=== PATIENT | female | born 1945 | race American Indian/Alaskan Native ===

== ENCOUNTER 2017-07-23 12:40 | Inpatient (IN) | payer BC, MEDICARE ==
[2017-07-23] MEDS ORDERED: MORPHINE IV PRN (13:29)
[2017-07-23] MEDS ORDERED: REGLAN IV PRN (13:30)
[2017-07-23] MEDS ORDERED: SODIUM CHLORIDE FLUSH SYRINGE 10 ML IV PRN ×2 (14:33→15:42)
[2017-07-23] MEDS ORDERED: TYLENOL PO PRN ×2 (14:33→15:42)
[2017-07-23] MEDS ORDERED: ZOFRAN IV PRN ×2 (14:33→15:42)
[2017-07-23] MEDS ORDERED: PROVENTIL IH PRN (14:33)
--- NOTE | 2017-07-23 14:33 | History and Physical Report ---
History of Present Illness Date of admission: 07/23/17 13:15 Medications and Allergies Allergies Allergy/AdvReac Type Severity Reaction Status Date / Time ondansetron Allergy Dizziness Verified 07/23/17 12:58 [From Zofran (as hydrochloride)] levofloxacin [From Levaquin] AdvReac Intermediate Hives Verified 07/23/17 13:36 Sulfa (Sulfonamide AdvReac Intermediate Hives Verified 07/23/17 13:36 Antibiotics) codeine AdvReac Hives Verified 07/23/17 13:36 Active Meds: Active Medications Metoclopramide HCl (Reglan) 10 mg IV Q8H PRN PRN Reason: Nausea And Vomiting Morphine Sulfate (Morphine) 2 mg IV Q4H PRN PRN Reason: Pain, Moderate (4-6) Exam - Constitutional Vitals: Temp Pulse Resp BP Pulse Ox 97.9 F 85 20 149/69 94 07/23/17 13:40 07/23/17 13:40 07/23/17 13:40 07/23/17 13:40 07/23/17 13:40
--- NOTE | 2017-07-23 14:55 | XRay Report ---
PORTABLE CHEST INDICATION: Dyspnea. COMPARISON: None similar at this institution. FINDINGS: Portable, frontal chest radiograph demonstrates normal cardiomediastinal silhouette, mild aortic knob calcifications and slightly prominent lung markings centrally. Minimal fluid or thickening along the right minor fissure. Slightly hyperexpanded lungs without pleural effusions or overt CHF. Slight biapical scarring/pleural thickening. EKG leads. Demineralized bones. CONCLUSION: Slight pulmonary vascular redistribution without overt CHF, as described. Please also correlate clinically and with prior chest imaging, if available. Thank you for the opportunity to participate in this patient's care.
--- NOTE | 2017-07-23 15:36 | History and Physical Report ---
History of Present Illness Date of examination: 07/23/17 Date of admission: 07/23/17 13:15 Chief complaint: Chief complaint: #1 Multiple episodes of loose bowel movements for the last 5 days. #2 patient was very weak and lightheaded as if about to pass out History of present illness: History of present illness: 71-year-old -[place] female with history of hypertension congestive heart failure gastroesophageal reflux disease chronic pain and IBS comes in for watery stools for the last 5 days. No vomiting. No fever no chills. Patient feels very weak and lightheaded and as if about to pass out. No recent travel. Some crampy abdominal pain present. Past History Past Medical History: heart failure, hypertension, hyperlipidemia Social history: no significant social history, lives with family, full code. denies: smoking, alcohol abuse, prescription drug abuse Family history: hypertension Medications and Allergies Allergies Allergy/AdvReac Type Severity Reaction Status Date / Time ondansetron Allergy Dizziness Verified 07/23/17 12:58 [From Zofran (as hydrochloride)] levofloxacin [From Levaquin] AdvReac Intermediate Hives Verified 07/23/17 13:36 Sulfa (Sulfonamide AdvReac Intermediate Hives Verified 07/23/17 13:36 Antibiotics) codeine AdvReac Hives Verified 07/23/17 13:36 Home Medications Medication Instructions Recorded Confirmed Last Taken Type Cyanocobalamin (Vitamin B-12) 1,000 mg PO DAILY 07/23/17 07/23/17 07/21/17 09: 00 History Glimepiride 1 mg PO DAILY 07/23/17 07/23/17 07/22/17 09:00 History Nitrofurantoin 50 mg PO HS 07/23/17 07/23/17 07/22/17 21:00 History Omeprazole 20 mg PO DAILY 07/23/17 07/23/17 07/23/17 09:00 History Vitamin D (Nf) 2,000 mg PO DAILY 07/23/17 07/23/17 07/21/17 09:00 History Vitamin E Cap 1,000 mg PO DAILY 07/23/17 07/23/17 07/21/17 09:00 History amLODIPine 10 mg PO DAILY 07/23/17 07/23/17 07/22/17 09:00 History Active Meds: Active Medications Acetaminophen (Tylenol) 650 mg PO Q4H PRN PRN Reason: Pain MILD(1-3)/Fever >100.5/TREADWELL Albuterol (Proventil) 2.5 mg IH Q4HRT PRN PRN Reason: Shortness Of Breath Sodium Chloride (Nacl 0.45% 1000 Ml) 1,000 mls @ 100 mls/hr IV DIRECT YOLA Metoclopramide HCl (Reglan) 10 mg IV Q8H PRN PRN Reason: Nausea And Vomiting Morphine Sulfate (Morphine) 2 mg IV Q4H PRN PRN Reason: Pain, Moderate (4-6) Ondansetron HCl (Zofran) 4 mg IV Q8H PRN PRN Reason: Nausea And Vomiting Sodium Chloride (Sodium Chloride Flush Syringe 10 Ml) 10 ml IV BID YOLA Sodium Chloride (Sodium Chloride Flush Syringe 10 Ml) 10 ml IV PRN PRN PRN Reason: LINE FLUSH Review of Systems All systems: negative Constitutional: no weight loss, no weight gain ( a review.A result.) Ears, nose, mouth and throat: no hoarseness, no sore throat, no swelling in throat Cardiovascular: no chest pain, no orthopnea, no palpitations, no rapid/ irregular heart beat, no edema, no syncope, no lightheadedness, no shortness of breath Respiratory: no cough, no cough with sputum, no excessive sputum, no hemoptysis , no shortness of breath, no dyspnea on exertion Gastrointestinal: diarrhea, change in bowel habits, no hematemesis, no coffee ground emesis, no BRBPR, no melena, no hematochezia, no loss of appetite Genitourinary Female: no urinary frequency, no urgency, no stress incontinence Rectal: no pain Musculoskeletal: no neck stiffness, no neck pain, no shooting arm pain, no arm numbness/tingling, no low back pain, no shooting leg pain, no leg numbness/ tingling, no redness of joints Integumentary: deferred, no rash, no pruritis, no redness, no sores, no wounds, no jaundice, no boils, no blisters Neurological: no transient paralysis, no paralysis, no weakness, no lack of coordination Psychiatric: no anxiety, no memory loss, no sleep disturbances, no insomnia, no hypersomnia, no change in appetite, no change in libido, no suicidal ideation Endocrine: no cold intolerance, no heat intolerance, no polyphagia, no excessive thirst, no polydipsia, no polyuria Hematologic/Lymphatic: no easy bruising, no easy bleeding Allergic/Immunologic: no urticaria, no allergic rhinitis, no wheezing Exam - Physical Exam Narrative exam: Patient sitting in chair in mild distress - Constitutional Vitals: Temp Pulse Resp BP Pulse Ox 97.9 F 85 20 149/69 94 07/23/17 13:40 07/23/17 14:00 07/23/17 14:00 07/23/17 13:40 07/23/17 14:00 General appearance: Present: mild distress, well-nourished - EENT Eyes: Present: PERRL ENT: hearing intact, clear oral mucosa - Neck Neck: Present: supple, normal ROM - Respiratory Respiratory effort: normal Respiratory: bilateral: CTA - Cardiovascular Heart rate: 70 Rhythm: regular Heart Sounds: Present: S1 & S2. Absent: rub, click - Extremities Extremities: pulses symmetrical, No edema Peripheral Pulses: within normal limits - Abdominal General gastrointestinal: Present: soft, non-tender, non-distended, normal bowel sounds Female genitourinary: Present: normal - Rectal Rectal Exam: deferred - Integumentary Integumentary: Present: clear, warm, dry - Musculoskeletal Musculoskeletal: gait normal, strength equal bilaterally - Psychiatric Psychiatric: appropriate mood/affect, intact judgment & insight - Neurologic Neurologic: CNII-XII intact, moves all extremities - Allied Health Allied health notes reviewed: nursing, case management Results - Labs CBC & Chem 7: 07/23/17 15:13 07/23/17 15:18 Labs: Laboratory Last Values POC Glucose 102 (70-105) 07/23/17 14:16 Assessment and Plan Advance Directives: Yes (full code) VTE prophylaxis?: Chemical Plan of care discussed with patient/family: Yes - Patient Problems (1) Acute gastroenteritis Current Visit: Yes Status: Acute Plan to address problem: Treat symptomatically and IV fluids GI evaluation (2) Dehydration Current Visit: Yes Status: Acute Plan to address problem: IV fluids for now (3) Hypertension Current Visit: Yes Status: Chronic Qualifiers: Hypertension type: essential hypertension Qualified Code(s): I10 - Essential (primary) hypertension Plan to address problem: Cont antihypertensives (4) T2DM (type 2 diabetes mellitus) Current Visit: Yes Status: Chronic Qualifiers: Diabetes mellitus usp insulin use: without rat exterminator use Plan to address problem: Accu-Cheks and coverage (5) Gastroesophageal reflux disease Current Visit: Yes Status: Chronic Qualifiers: Esophagitis presence: without esophagitis Qualified Code(s): K21.9 - Gastro -esophageal reflux disease without esophagitis Plan to address problem: Patient initiated on Protonix, patient is on omeprazole at home (6) Chronic pain Current Visit: Yes Status: Chronic Qualifiers: Chronic pain type: chronic pain syndrome Qualified Code(s): G89.4 - Chronic pain syndrome Plan to address problem: Continue Percocet (7) DVT prophylaxis Current Visit: Yes Status: Acute Plan to address problem: On heparin
[2017-07-23] MEDS ORDERED: PERCOCET 5/325 PO PRN (15:42)
[2017-07-23] MEDS: NACL 0.45% 1000 ML 1,000 ML IV SCH (16:11)
[2017-07-23] MEDS: FLAGYL 500 MG/100 ML 500 MG/100 ML BAG IV SCH ×2 (16:17→22:42)
[2017-07-23] MEDS: PROTONIX PO SCH (16:20)
[2017-07-23] MEDS: NORVASC PO SCH (16:20)
[2017-07-23 16:59] LABS: Basophils % (Auto) 0.3 % (0.0-1.8); Eosinophils # (Auto) 0.1 K/mm3 (0.0-0.4); Eosinophils % (Auto) 1.2 % (0.0-4.3); Hematocrit 38.4 % (30.3-42.9); Hemoglobin 12.3 gm/dl (10.1-14.3); Lymphocytes # (Auto) 2.9 K/mm3 (1.2-5.4); Lymphocytes % (Auto) 46.1 % (13.4-35.0); Mean Corpuscular HGB Conc 32 % (30-34); Mean Corpuscular Hemoglobin 26 pg (28-32); Mean Corpuscular Volume 82 fl (79-97); Monocytes # (Auto) 0.5 K/mm3 (0.0-0.8); Monocytes % (Auto) 8.2 % (0.0-7.3); Platelet Count 227 K/mm3 (140-440); Red Blood Count 4.68 M/mm3 (3.65-5.03); Red Cell Distribution Width 14.8 % (13.2-15.2)
[2017-07-23 17:13] LABS: Alanine Aminotransferase 12 units/L (7-56); Albumin 4.1 g/dL (3.9-5); BUN/Creatinine Ratio 14; Blood Urea Nitrogen 10 mg/dL (7-17); Calcium 9.1 mg/dL (8.4-10.2); Hemolysis Index 30
[2017-07-23 17:17] LABS: INR 0.9 (0.87-1.13)
[2017-07-23] MEDS ORDERED: SODIUM CHLORIDE FLUSH SYRINGE 10 ML IV SCH (22:00)
[2017-07-23] MEDS: DITROPAN PO SCH (22:42)
[2017-07-23] MEDS: AMBIEN PO PRN (22:43)
[2017-07-23] MEDS: SODIUM CHLORIDE FLUSH SYRINGE 10 ML IV SCH (22:44)
[2017-07-24] MEDS: NACL 0.45% 1000 ML 1,000 ML IV SCH ×2 (06:57→21:25)
[2017-07-24] MEDS: FLAGYL 500 MG/100 ML 500 MG/100 ML BAG IV SCH ×3 (06:57→21:25)
--- NOTE | 2017-07-24 08:36 | Consultation ---
REFERRING PHYSICIAN: Jasbir Villalobos MD INDICATION: 1. Change in bowel habits. 2. Loose stool. HISTORY OF PRESENT ILLNESS: The patient is a 71-year-old black female with history of CHF, reflux and IBS as well as chronic pain. The patient reports 5 days of loose, non-bloody bowel movements. She reports no diet or medication changes. She reports no fevers or chills. She reports no change in medications or anything else. The patient reports symptoms started progressively and are worse when she eats. She reports some mild cramping abdominal pain. She denies any weight loss. She reports her last colonoscopy was benign in the end of 2017. She denies any other specific problems or complaints. PAST MEDICAL HISTORY: 1. Hypertension. 2. High cholesterol. 3. Heart failure. MEDICATIONS: See chart. ALLERGIES: ZOFRAN, LEVAQUIN, SULFA DRUGS AND CODEINE. ; SOCIAL HISTORY: Denies alcohol or tobacco. FAMILY HISTORY: Negative for colon cancer. REVIEW OF SYSTEMS: GENERAL: Reports mild weakness. HEENT: No visual complaints or tinnitus. PULMONARY: Reports mild shortness of breath. No cough. No chest pain. GASTROINTESTINAL: Reports loose stool. All points of 13-point review of systems otherwise negative. PHYSICAL EXAMINATION: VITAL SIGNS: Temperature of 97.9, pulse 85, respirations 20, blood pressure 149/69. GENERAL: Fairly nourished black female in no acute distress. HEENT: Pupils are equal, round and reactive. PULMONARY: Clear to auscultation bilaterally. CARDIOVASCULAR: Regular rhythm. Normal S1, S2. ABDOMEN: Positive bowel sounds, soft. SKIN: No obvious rashes. LABORATORY DATA: Pertinent for white count of 6.3, hemoglobin and hematocrit of 12.3 and 38.4, platelet count of 227. Coags within normal limits. Chem-7 within normal limits. LFTs within normal limits. ASSESSMENT: A 71-year-old black female, who presents with 5 days of loose, nonbloody bowel movements with about 3-4 per day. The patient's symptoms suggest more gastroenteritis. Conservative medical approach is noted below. PLAN: 1. Hydrate as per primary team. 2. Clear liquid diet, advance as tolerated. 3. Continue Flagyl as started by primary team. 4. Antiemetics and pain medications p.r.n. 5. Stool cultures based on progress. 6. No plans for colonoscopy or other endoscopic evaluation at this time. 7. If the patient tolerating soft food and stable, okay to discharge in a.m. from GI standpoint. 8. We will follow. JOB# [id number] MATT/SHON
--- NOTE | 2017-07-24 08:51 | Progress Note ---
<JORI THACKER - Last Filed: 07/24/17 16:47> Assessment and Plan Assessment and plan: 71-year-old -S[place]i female was admitted for loose stools 5 days. (1) Acute gastroenteritis Treat symptomatically and IV fluids C diff ordered, continue Flagyl, GI evaluation (2) Dehydration IV fluids for now (3) Hypertension Cont antihypertensives (4) T2DM (type 2 diabetes mellitus) Accu-Cheks and coverage (5) Gastroesophageal reflux disease Patient initiated on Protonix, patient is on omeprazole at home (6) Chronic pain Continue Percocet (7) DVT prophylaxis On heparin History Interval history: Patient seen and examined. She states that her stools have been formed today but still frequent, 3 this morning. Labs and nursing notes reviewed. Hospitalist Physical - Constitutional Vitals: Temp Pulse Resp BP Pulse Ox 97.8 F 73 20 137/43 91 07/24/17 07:20 07/24/17 07:20 07/24/17 07:20 07/24/17 07:20 07/24/17 07:20 General appearance: Present: no acute distress, well-nourished - EENT Eyes: Present: PERRL, EOM intact ENT: hearing intact, clear oral mucosa - Neck Neck: Present: supple, normal ROM - Respiratory Respiratory effort: normal Respiratory: bilateral: CTA - Cardiovascular Rhythm: regular Heart Sounds: Present: S1 & S2 - Extremities Extremities: no ischemia, No edema, normal temperature, normal color - Abdominal General gastrointestinal: soft, non-tender, non-distended - Integumentary Integumentary: Present: clear, warm, dry - Psychiatric Psychiatric: appropriate mood/affect, intact judgment & insight, cooperative - Neurologic Neurologic: CNII-XII intact, moves all extremities Results - Labs CBC & Chem 7: 07/23/17 15:13 07/23/17 15:18 Labs: Laboratory Last Values WBC 6.3 K/mm3 (4.5-11.0) 07/23/17 15:13 RBC 4.68 M/mm3 (3.65-5.03) 07/23/17 15:13 Hgb 12.3 gm/dl (10.1-14.3) 07/23/17 15:13 Hct 38.4 % (30.3-42.9) 07/23/17 15:13 MCV 82 fl (79-97) 07/23/17 15:13 MCH 26 pg (28-32) L 07/23/17 15:13 MCHC 32 % (30-34) 07/23/17 15:13 RDW 14.8 % (13.2-15.2) 07/23/17 15:13 Plt Count 227 K/mm3 (140-440) 07/23/17 15:13 Lymph % (Auto) 46.1 % (13.4-35.0) H 07/23/17 15:13 Green % (Auto) 8.2 % (0.0-7.3) H 07/23/17 15:13 Eos % (Auto) 1.2 % (0.0-4.3) 07/23/17 15:13 Baso % (Auto) 0.3 % (0.0-1.8) 07/23/17 15:13 Lymph # 2.9 K/mm3 (1.2-5.4) 07/23/17 15:13 Green # 0.5 K/mm3 (0.0-0.8) 07/23/17 15:13 Eos # 0.1 K/mm3 (0.0-0.4) 07/23/17 15:13 Baso # 0.0 K/mm3 (0.0-0.1) 07/23/17 15:13 Seg Neutrophils % 44.2 % (40.0-70.0) 07/23/17 15:13 Seg Neutrophils # 2.8 K/mm3 (1.8-7.7) 07/23/17 15:13 PT 12.6 Sec. (12.2-14.9) 07/23/17 15:18 INR 0.90 (0.87-1.13) 07/23/17 15:18 Sodium 140 mmol/L (137-145) 07/23/17 15:18 Potassium 3.7 mmol/L (3.6-5.0) 07/23/17 15:18 Chloride 99.7 mmol/L (98-107) 07/23/17 15:18 Carbon Dioxide 21 mmol/L (22-30) L 07/23/17 15:18 Anion Gap 23 mmol/L 07/23/17 15:18 BUN 10 mg/dL (7-17) 07/23/17 15:18 Creatinine 0.7 mg/dL (0.7-1.2) 07/23/17 15:18 Estimated GFR > 60 ml/min 07/23/17 15:18 BUN/Creatinine Ratio 14 % 07/23/17 15:18 Glucose 84 mg/dL (65-100) 07/23/17 15:18 POC Glucose 102 (70-105) 07/23/17 14:16 Hemoglobin A1c 6.2 % (4-6) H 07/23/17 15:51 Calcium 9.1 mg/dL (8.4-10.2) 07/23/17 15:18 Total Bilirubin 0.20 mg/dL (0.1-1.2) 07/23/17 15:18 AST 18 units/L (5-40) 07/23/17 15:18 ALT 12 units/L (7-56) 07/23/17 15:18 Alkaline Phosphatase 68 units/L (35-129) 07/23/17 15:18 Total Protein 7.2 g/dL (6.3-8.2) 07/23/17 15:18 Albumin 4.1 g/dL (3.9-5) 07/23/17 15:18 Albumin/Globulin Ratio 1.3 % 07/23/17 15:18 <DANIELLE LA - Last Filed: 07/24/17 21:25> Assessment and Plan Assessment and plan: I saw and evaluated the patient. I agree with the findings and the plan of care as documented in the Physician Director Of Philanthropy's~note, with the following corrections and additions. Hospitalist Physical - Constitutional Vitals: Temp Pulse Resp BP Pulse Ox 98.3 F 74 18 147/69 95 07/24/17 20:27 07/24/17 20:27 07/24/17 20:27 07/24/17 20:27 07/24/17 20:27 Results - Labs CBC & Chem 7: 07/23/17 15:13 07/23/17 15:18 Labs: Laboratory Last Values WBC 6.3 K/mm3 (4.5-11.0) 07/23/17 15:13 RBC 4.68 M/mm3 (3.65-5.03) 07/23/17 15:13 Hgb 12.3 gm/dl (10.1-14.3) 07/23/17 15:13 Hct 38.4 % (30.3-42.9) 07/23/17 15:13 MCV 82 fl (79-97) 07/23/17 15:13 MCH 26 pg (28-32) L 07/23/17 15:13 MCHC 32 % (30-34) 07/23/17 15:13 RDW 14.8 % (13.2-15.2) 07/23/17 15:13 Plt Count 227 K/mm3 (140-440) 07/23/17 15:13 Lymph % (Auto) 46.1 % (13.4-35.0) H 07/23/17 15:13 Green % (Auto) 8.2 % (0.0-7.3) H 07/23/17 15:13 Eos % (Auto) 1.2 % (0.0-4.3) 07/23/17 15:13 Baso % (Auto) 0.3 % (0.0-1.8) 07/23/17 15:13 Lymph # 2.9 K/mm3 (1.2-5.4) 07/23/17 15:13 Green # 0.5 K/mm3 (0.0-0.8) 07/23/17 15:13 Eos # 0.1 K/mm3 (0.0-0.4) 07/23/17 15:13 Baso # 0.0 K/mm3 (0.0-0.1) 07/23/17 15:13 Seg Neutrophils % 44.2 % (40.0-70.0) 07/23/17 15:13 Seg Neutrophils # 2.8 K/mm3 (1.8-7.7) 07/23/17 15:13 PT 12.6 Sec. (12.2-14.9) 07/23/17 15:18 INR 0.90 (0.87-1.13) 07/23/17 15:18 Sodium 140 mmol/L (137-145) 07/23/17 15:18 Potassium 3.7 mmol/L (3.6-5.0) 07/23/17 15:18 Chloride 99.7 mmol/L (98-107) 07/23/17 15:18 Carbon Dioxide 21 mmol/L (22-30) L 07/23/17 15:18 Anion Gap 23 mmol/L 07/23/17 15:18 BUN 10 mg/dL (7-17) 07/23/17 15:18 Creatinine 0.7 mg/dL (0.7-1.2) 07/23/17 15:18 Estimated GFR > 60 ml/min 07/23/17 15:18 BUN/Creatinine Ratio 14 % 07/23/17 15:18 Glucose 84 mg/dL (65-100) 07/23/17 15:18 POC Glucose 102 (70-105) 07/23/17 14:16 Hemoglobin A1c 6.2 % (4-6) H 07/23/17 15:51 Calcium 9.1 mg/dL (8.4-10.2) 07/23/17 15:18 Total Bilirubin 0.20 mg/dL (0.1-1.2) 07/23/17 15:18 AST 18 units/L (5-40) 07/23/17 15:18 ALT 12 units/L (7-56) 07/23/17 15:18 Alkaline Phosphatase 68 units/L (35-129) 07/23/17 15:18 Total Protein 7.2 g/dL (6.3-8.2) 07/23/17 15:18 Albumin 4.1 g/dL (3.9-5) 07/23/17 15:18 Albumin/Globulin Ratio 1.3 % 07/23/17 15:18
[2017-07-24] MEDS: NORVASC PO SCH (10:00)
[2017-07-24] MEDS: PROTONIX PO SCH (10:38)
[2017-07-24] MEDS: DITROPAN PO SCH ×2 (10:38→21:26)
[2017-07-24] MEDS: HEPARIN SUB-Q SCH ×2 (10:39→21:27)
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
[2017-07-24] MEDS: SODIUM CHLORIDE FLUSH SYRINGE 10 ML IV SCH ×2 (16:45→21:26)
--- NOTE | 2017-07-24 19:27 | Gastroenterology Progress Note ---
Assessment and Plan GI: symptoms improving - probable gastroenteritis - advance diet to soft - if stable in am ok to d/c from GI standpoint Subjective Date of service: 07/24/17 Interval history: -pt reports stools improving. Wants diet advanced Objective - Constitutional Vitals: Temp Pulse Resp BP Pulse Ox 98.2 F 72 20 135/59 96 07/24/17 14:22 07/24/17 14:22 07/24/17 14:22 07/24/17 14:22 07/24/17 14:22 General appearance: no acute distress - EENT Eyes: PERRL - Respiratory Respiratory: bilateral: CTA, diminished, rales, rhonchi, wheezing, other - Cardiovascular Rhythm: regular Heart Sounds: Present: S1 & S2 - Gastrointestinal General gastrointestinal: Present: soft, non-tender, non-distended - Labs CBC & Chem 7: 07/23/17 15:13 07/23/17 15:18
[2017-07-24] MEDS: AMBIEN PO PRN (21:27)
[2017-07-25] MEDS: FLAGYL 500 MG/100 ML 500 MG/100 ML BAG IV SCH (05:50)
[2017-07-25] MEDS: NORVASC PO SCH (09:47)
[2017-07-25] MEDS: DITROPAN PO SCH (09:47)
[2017-07-25] MEDS: NACL 0.45% 1000 ML 1,000 ML IV SCH (09:47)
[2017-07-25] MEDS: PROTONIX PO SCH (09:47)
[2017-07-25] MEDS: HEPARIN SUB-Q SCH (09:47)
[2017-07-25] MEDS: SODIUM CHLORIDE FLUSH SYRINGE 10 ML IV SCH (09:50)
--- NOTE | 2017-07-25 10:14 | Discharge Summary ---
<JORI THACKER - Last Filed: 07/25/17 12:26> Providers - Providers Date of Admission: 07/23/17 13:15 Date of discharge: 07/25/17 Attending physician: DANIELLE LA MD 07/23/17 Consult to Case Management [CONS] Routine Services Needed at Discharge: Home Health Services Notified:: HOLLAND 07/23/17 13:26 Consult to Physician [CONS] Routine Comment: Consulting Provider: SJ GALVAN Physician Instructions: Reason For Exam: ACUTE GASTROENTERITIS 07/23/17 16:49 Physical Therapy Evaluation and Treat [CONS] Routine Comment: Reason For Exam: recent falls Primary care physician: KADI MEDINA Hospitalization Condition: Stable Hospital course: Patient is a 71 year female who presented for direct admission after having loose stools for 5 days prior to admission and feeling lightheaded as if she were to pass out. Patient was treated for dehydration and gastroenteritis with IV fluids and IV antibiotics. Box Feeder was consulted and agreed with the possible diagnosis of gastroenteritis, no further testing was completed. Prior to discharge her symptoms improved and she was stable enough to be discharged home. It was explained to patient that she may have a more loose stools for a few more days as this is a course of gastroenteritis. Patient was discharged with Imodium for diarrhea and advised to follow-up with her primary care provider within 5 days of discharge. Discharge diagnoses Acute gastroenteritis Dehydration Hypertension Type 2 diabetes GERD Chronic pain Disposition: DC-01 TO HOME OR SELFCARE Time spent for discharge: 32 minutes Core Measure Documentation - Palliative Care Palliative Care/ Comfort Measures: Not Applicable - Core Measures Any of the following diagnoses?: none Exam - Constitutional Vitals: Temp Pulse Resp BP Pulse Ox 98.3 F 73 18 140/54 96 07/25/17 07:42 07/25/17 07:42 07/25/17 07:42 07/25/17 07:42 07/25/17 07:42 General appearance: Present: no acute distress, well-nourished - EENT Eyes: Present: PERRL ENT: hearing intact, clear oral mucosa - Neck Neck: Present: supple, normal ROM - Respiratory Respiratory effort: normal Respiratory: bilateral: CTA - Cardiovascular Heart Sounds: Present: S1 & S2. Absent: rub, click - Extremities Extremities: pulses symmetrical, No edema Peripheral Pulses: within normal limits - Abdominal General gastrointestinal: Present: soft, non-tender, non-distended, normal bowel sounds Female genitourinary: Present: normal - Integumentary Integumentary: Present: clear, warm, dry - Musculoskeletal Musculoskeletal: gait normal, strength equal bilaterally - Psychiatric Psychiatric: appropriate mood/affect, intact judgment & insight - Neurologic Neurologic: CNII-XII intact, moves all extremities Plan Activity: fall precautions Diet: low fat, low cholesterol, low salt, diabetic, advance as tolerated Follow up with: KADI MEDINA MD [Primary Care Provider] - 7 Days Prescriptions: Loperamide [Imodium] 2 mg PO DAILY PRN #30 capsule PRN Reason: Diarrhea <DANIELLE LA - Last Filed: 07/25/17 15:40> Providers - Providers Date of Admission: 07/23/17 13:15 Attending physician: DANIELLE LA MD 07/23/17 Consult to Case Management [CONS] Routine Services Needed at Discharge: Home Health Services Notified:: HOLLAND 07/23/17 13:26 Consult to Physician [CONS] Routine Comment: Consulting Provider: SJ GALVAN Physician Instructions: Reason For Exam: ACUTE GASTROENTERITIS 07/23/17 16:49 Physical Therapy Evaluation and Treat [CONS] Routine Comment: Reason For Exam: recent falls Primary care physician: KADI MEDINA Hospitalization Hospital course: I saw and evaluated the patient. I agree with the findings and the plan of care as documented in the PA's~note, with the following corrections and additions. Exam - Constitutional Vitals: Temp Pulse Resp BP Pulse Ox 98.2 F 76 16 135/54 97 07/25/17 13:54 07/25/17 13:54 07/25/17 13:54 07/25/17 13:54 07/25/17 13:54
[2017-07-25 14:49] VITALS: BP 135/54
--- NOTE | 2017-07-25 15:52 | Gastroenterology Progress Note ---
Assessment and Plan GI: improving gastroenteritis symptoms - advance diet as tolerated - ok to d/c from GI standpoint - will sign off, call if needed Subjective Date of service: 07/25/17 Interval history: pt doing better, tolerating po Objective - Constitutional Vitals: Temp Pulse Resp BP Pulse Ox 98.2 F 76 16 135/54 97 07/25/17 13:54 07/25/17 13:54 07/25/17 13:54 07/25/17 13:54 07/25/17 13:54 - EENT Eyes: PERRL - Respiratory Respiratory: bilateral: CTA - Cardiovascular Rhythm: regular Heart Sounds: Present: S1 & S2 - Gastrointestinal General gastrointestinal: Present: soft, non-tender, non-distended - Labs CBC & Chem 7: 07/23/17 15:13 07/23/17 15:18
== END 2017-07-25 15:25 | disposition home health service (06) | DRG 392 ==
LOC: 3A 12:40 → UNDOADMIN 12:40 → 2B-ACE 13:15
PROVIDERS: ADMIT Internal Medicine; ATTEND Internal Medicine
DX: K52.9 Noninfective gastroenteritis and colitis, unspecified (principal); E86.0 Dehydration; K21.9 Gastro-esophageal reflux disease without esophagitis; I11.0 Hypertensive heart disease with heart failure; I50.9 Heart failure, unspecified; E11.9 Type 2 diabetes mellitus without complications; G89.4 Chronic pain syndrome; E78.00 Pure hypercholesterolemia, unspecified; E78.5 Hyperlipidemia, unspecified; Z88.5 Allergy status to narcotic agent; Z88.2 Allergy status to sulfonamides; Z88.8 Allergy status to other drugs, medicaments and biological substances
CPT/HCPCS: 36415; 71045; 80053; 82962; 83036; 85025; 85610; 87324; 93005; 93010; G8978-GP; G8979-GP; J1644; J2765